=== PATIENT | female | born 1950 | race Caucasian/White ===

== ENCOUNTER 2016-02-27 05:29 | Day surgery (SDC) | payer MEDICARE, OTHER ==
[2016-02-22 12:28] LABS: APPEARANCE,URINE CLEAR; BILIRUBIN,URINE NEGATIVE (NEGATIVE); GLUCOSE, URINE NEGATIVE (NEGATIVE); KETONES,URINE NEGATIVE (NEGATIVE); LEUKOCYTE ESTERASE,URINE NEGATIVE (NEGATIVE); NITRITE,URINE NEGATIVE (NEGATIVE); PROTEIN,URINE NEGATIVE (NEGATIVE); UROBILINOGEN,URINE NEGATIVE mg/dL (<2.0)
--- NOTE | 2016-02-22 20:56 | EKG REPORT ---
SEVERITY:- ABNORMAL ECG - ATRIAL FIBRILLATION, V-RATE 73-96 : Confirmed by: Steven Montelongo MD 22-Feb-2016 20:55:54
[~2016-02-27 05:29] MED LIST: CEFAZOLIN SODIUM 1 GM in DEXTROSE 5%-WATER 50 ML IV PRN; LACTATED RINGERS 1000 ML IV PRN; LIDOCAINE 0.5% INJ-PF (5 MG/ML) 50 ML SDV SUBCUT PRN
[2016-02-27 06:23] LABS: PROTHROMBIN TIME 13.7 SEC (11.4-15.4)
[2016-02-27 06:24] LABS: PARTIAL THROMBOPLASTIN TIME 29.6 SEC (23.5-35.8)
[2016-02-27] MEDS ORDERED: FENTANYL CITRATE INJ/PF 250 MCG/5 ML AMPULE ONE (07:23)
[2016-02-27] MEDS ORDERED: MIDAZOLAM 2 MG/2 ML INJ ONE (07:23)
[2016-02-27] MEDS ORDERED: PROPOFOL INJ 200 MG/20 ML VIAL IV ONE (07:24)
[2016-02-27] MEDS ORDERED: OXYCODONE-ACETAMINOPHEN 5-325 MG TABLET PO PRN ×3 (08:07→08:27)
[2016-02-27] MEDS ORDERED: MORPHINE SULFATE 10 MG/ML INJ IV PRN (08:07)
[2016-02-27] MEDS ORDERED: MEPERIDINE HCL/PF INJ 25 MG/1 ML DISP.SYRIN IV PRN (08:07)
[2016-02-27] MEDS ORDERED: FENTANYL CITRATE INJ/PF 100 MCG/2 ML AMPUL IV PRN ×3 (08:07)
[2016-02-27] MEDS ORDERED: PROMETHAZINE HCL INJ 25 MG/1 ML VIAL IV PRN ×2 (08:07)
[2016-02-27] MEDS ORDERED: DIPHENHYDRAMINE HCL 50 MG/ML VIAL IV PRN (08:07)
[2016-02-27] MEDS ORDERED: PROMETHAZINE HCL INJ 25 MG/1 ML VIAL IM PRN (08:27)
[2016-02-27] MEDS ORDERED: IBUPROFEN 800 MG TABLET PO SCH (10:00)
[2016-02-27 11:13] VITALS: BP 122/75
[2016-02-27] MEDS ORDERED: LIDOCAINE 2% INJ-PF (20 MG/ML) 10 ML AMPUL ONE (12:27)
[2016-02-27] MEDS ORDERED: DEXAMETHASONE SOD PHOSPHATE INJ 4 MG/1 ML VIAL ONE (12:27)
[2016-02-27] MEDS ORDERED: ONDANSETRON HCL INJ/PF 4 MG/2 ML SDV ONE (12:27)
[2016-02-27] MEDS ORDERED: SUCCINYLCHOLINE CHLORIDE INJ 200 MG/10 ML VIAL ONE (12:27)
[2016-02-27] MEDS ORDERED: METOCLOPRAMIDE HCL INJ/PF 10 MG/2 ML SDV ONE (12:27)
--- NOTE | 2016-02-27 14:39 | OPERATIVE REPORT E ---
Operative Report NAME: CORI ARECHIGA : 1950 AGE: 65Y DATE OF SURGERY: 02/27/2016 ROOM: PREOPERATIVE DIAGNOSIS: Postmenopausal bleeding. POSTOPERATIVE DIAGNOSIS: Postmenopausal bleeding. PROCEDURE: Hysteroscopic polypectomy, . SURGEON: VALERIE RENTERIA M.D. ANESTHESIA: General endotracheal. FINDINGS: A 1 x 2 cm polypoid structure in the uterus. Post removal . No adnexal masses were appreciated. Bladder was left undrained. PROCEDURE: Patient taken to the operating room and placed in modified lithotomy position. Adequate anesthesia was ascertained. Prepped and draped in the usual manner for a hysteroscopy. Bladder was left undrained. UA performed. Adequate anesthesia was done. Surgical timeout performed. Cervix readily admitted an operative hysteroscope. findings were appreciated. MyoSure was deployed. The lesion was removed in toto and sent to pathology. Good hemostasis noted at the completion of the procedure and all sponge and needle counts were correct . DICTATING PHYSICIAN: VALERIE RENTERIA M.D. [id number] PHY#: [id number] ID: [id number] JOB#: [id number] ACCT: [id number] cc:VALERIE RENTERIA M.D. >
== END 2016-02-27 10:40 | disposition home or self-care (01) ==
LOC: OROUT 05:29
PROVIDERS: ATTEND Specialist
PROC: 0UB98ZX Excision of Uterus, Via Natural or Artificial Opening Endoscopic, Diagnostic (ICD-10-PCS; principal; 2016-02-27 07:15)
DX: N95.0 Postmenopausal bleeding (principal); N84.0 Polyp of corpus uteri; I48.91 Unspecified atrial fibrillation; E07.9 Disorder of thyroid, unspecified; I10 Essential (primary) hypertension; Z79.01 Long term (current) use of anticoagulants; Z79.899 Other long term (current) drug therapy; Z88.2 Allergy status to sulfonamides; Z86.73 Personal history of transient ischemic attack (TIA), and cerebral infarction without residual deficits
CPT/HCPCS: 93005; 86900; 86901; 36415 ×2; 86850; 85610; 85730; 81001; 88305 ×2; 71020; 93010; 58558; J2250; J0690; J1100; J3010; J2765; J0330; J2405; J2704; J3490; 952

== ENCOUNTER → 2016-07-29 | Outpatient (CLI) | payer MEDICARE, OTHER ==
[2016-07-29 08:19] LABS: ABSOLUTE BASOPHILS # (AUTO) 0.1 10^3/uL (0.0-0.2); ABSOLUTE EOSINOPHILS # (AUTO) 0.3 10^3/uL (0.0-0.6); ABSOLUTE LYMPHOCYTES (AUTO) 1.7 10^3/uL (0.5-4.7); ABSOLUTE MONOCYTES (AUTO) 0.7 10^3/uL (0.1-1.4); ABSOLUTE NEUT (AUTO) 2.5 10^3/uL (1.7-8.2); BASOPHILS % (AUTO) 1.6 % (0-2); EOSINOPHILS % (AUTO) 4.8 % (0-6); HEMATOCRIT 42.9 % (36.0-47.0); HEMOGLOBIN 14.1 g/dL (12.0-15.5); HGB HCT DIFFERENCE -0.6; LYMPHOCYTES % (AUTO) 32.8 % (13-45); MEAN CORPUSCULAR HEMOGLOBIN 31.1 pg (27.0-33.4); MEAN CORPUSCULAR VOLUME 94 fl (80-97); MONOCYTES % (AUTO) 12.5 % (3-13); RED BLOOD COUNT 4.55 10^6/uL (3.72-5.28); RED CELL DISTRIBUTION WIDTH 12.3 % (11.5-14.0); SEGMENTED NEUTROPHILS % (AUTO) 48.3 % (42-78); WHITE BLOOD COUNT 5.2 10^3/uL (4.0-10.5)
[2016-07-29 08:38] LABS: ALANINE AMINOTRANSFERASE 25 U/L (9-52); ALBUMIN 4.6 g/dL (3.5-5.0); ALKALINE PHOSPHATASE 51 U/L (38-126); ANION GAP 9 (5-19); ASPARTATE AMINO TRANSFERASE 22 U/L (14-36); BILIRUBIN,DIRECT 0.2 mg/dL (0.0-0.4); BILIRUBIN,TOTAL 0.6 mg/dL (0.2-1.3); BLOOD UREA NITROGEN 20 mg/dL (7-20); CARBON DIOXIDE 29 mmol/L (22-30); CHLORIDE 103 mmol/L (98-107); CHOLESTEROL 210.24 mg/dL (0-200); Direct HDL 62 mg/dL (>40); GLUCOSE 85 mg/dL (75-110); POTASSIUM 4.6 mmol/L (3.6-5.0); SODIUM 141.1 mmol/L (137-145); TOTAL PROTEIN 8.1 g/dL (6.3-8.2); TRIGLYCERIDES 105 mg/dL (<150)
[2016-07-29 08:55] LABS: DIRECT LDL 117 mg/dL (<100)
[2016-07-29 09:17] LABS: THYROID STIMULATING HORMONE 1.97 uIU/mL (0.47-4.68)
== END ==
LOC: OD 07:10
PROVIDERS: ATTEND Internal Medicine
DX: I10 Essential (primary) hypertension (principal); E78.2 Mixed hyperlipidemia; E03.9 Hypothyroidism, unspecified; Z79.01 Long term (current) use of anticoagulants
CPT/HCPCS: 36415; 80053; 80061; 84439; 84443; 85025

== ENCOUNTER → 2017-02-25 | Outpatient (CLI) | payer MEDICARE, OTHER ==
[2017-02-25 12:08] LABS: ABSOLUTE BASOPHILS # (AUTO) 0.1 10^3/uL (0.0-0.2); ABSOLUTE EOSINOPHILS # (AUTO) 0.2 10^3/uL (0.0-0.6); ABSOLUTE LYMPHOCYTES (AUTO) 1.4 10^3/uL (0.5-4.7); ABSOLUTE MONOCYTES (AUTO) 0.6 10^3/uL (0.1-1.4); ABSOLUTE NEUT (AUTO) 3.5 10^3/uL (1.7-8.2); BASOPHILS % (AUTO) 2.2 % (0-2); EOSINOPHILS % (AUTO) 3.6 % (0-6); HEMATOCRIT 43.7 % (36.0-47.0); HEMOGLOBIN 14.8 g/dL (12.0-15.5); LYMPHOCYTES % (AUTO) 24.1 % (13-45); MEAN CORPUSCULAR HEMOGLOBIN 31.5 pg (27.0-33.4); MEAN CORPUSCULAR HGB CONC 33.9 g/dL (32.0-36.0); MEAN CORPUSCULAR VOLUME 93 fl (80-97); MONOCYTES % (AUTO) 9.9 % (3-13); PLATELET COUNT 202 10^3/uL (150-450); RED CELL DISTRIBUTION WIDTH 12.3 % (11.5-14.0); SEGMENTED NEUTROPHILS % (AUTO) 60.2 % (42-78); TOTAL CELLS COUNTED % (AUTO) 100 %; WHITE BLOOD COUNT 5.8 10^3/uL (4.0-10.5)
[2017-02-25 12:09] LABS: INTERNATIONAL RATION (INR) 1.56; PROTHROMBIN TIME 19.6 SEC (11.4-15.4)
[2017-02-25 12:27] LABS: ALANINE AMINOTRANSFERASE 27 U/L (9-52); ALBUMIN 4.9 g/dL (3.5-5.0); ALKALINE PHOSPHATASE 60 U/L (38-126); ANION GAP 12 (5-19); ASPARTATE AMINO TRANSFERASE 23 U/L (14-36); BILIRUBIN,DIRECT 0.2 mg/dL (0.0-0.4); BILIRUBIN,TOTAL 0.6 mg/dL (0.2-1.3); BLOOD UREA NITROGEN 17 mg/dL (7-20); CALCIUM 10.4 mg/dL (8.4-10.2); CARBON DIOXIDE 30 mmol/L (22-30); CHLORIDE 101 mmol/L (98-107); CHOLESTEROL 228.32 mg/dL (0-200); GLUCOSE 79 mg/dL (75-110); POTASSIUM 4.5 mmol/L (3.6-5.0); SODIUM 142.5 mmol/L (137-145); TOTAL PROTEIN 8.1 g/dL (6.3-8.2); TRIGLYCERIDES 148 mg/dL (<150)
[2017-02-25 12:38] LABS: DIRECT LDL 135 mg/dL (<100)
[2017-02-25 12:42] LABS: FREE T4 (FREE THYROXINE) 1.2 ng/dL (0.78-2.19)
[2017-02-25 12:55] LABS: THYROID STIMULATING HORMONE 1.62 uIU/mL (0.47-4.68)
== END ==
LOC: OD 10:28
PROVIDERS: ATTEND Internal Medicine
DX: I10 Essential (primary) hypertension (principal); E78.2 Mixed hyperlipidemia; E03.9 Hypothyroidism, unspecified; Z79.01 Long term (current) use of anticoagulants
CPT/HCPCS: 36415; 80053; 80061; 84439; 84443; 85025; 85610

== ENCOUNTER → 2017-08-31 | Outpatient (CLI) | payer MEDICARE, OTHER ==
[2017-08-31 10:22] LABS: ANION GAP 13 (5-19); BLOOD UREA NITROGEN 21 mg/dL (7-20); CALCIUM 9.7 mg/dL (8.4-10.2); CARBON DIOXIDE 30 mmol/L (22-30); CHLORIDE 102 mmol/L (98-107); CHOLESTEROL 224.21 mg/dL (0-200); GLUCOSE 86 mg/dL (75-110); POTASSIUM 4.4 mmol/L (3.6-5.0); SODIUM 144.7 mmol/L (137-145); TRIGLYCERIDES 137 mg/dL (<150)
[2017-08-31 10:32] LABS: DIRECT LDL 126 mg/dL (<100)
== END ==
LOC: OD 09:13
PROVIDERS: ATTEND Internal Medicine
DX: E55.9 Vitamin D deficiency, unspecified (principal); E83.52 Hypercalcemia; E78.2 Mixed hyperlipidemia
CPT/HCPCS: 36415; 80048; 80061; 82306

== ENCOUNTER → 2018-01-28 | Outpatient (CLI) | payer MEDICARE, OTHER ==
[2018-01-28 10:39] LABS: ABSOLUTE BASOPHILS # (AUTO) 0.1 10^3/uL (0.0-0.2); ABSOLUTE EOSINOPHILS # (AUTO) 0.2 10^3/uL (0.0-0.6); ABSOLUTE LYMPHOCYTES (AUTO) 1.4 10^3/uL (0.5-4.7); ABSOLUTE MONOCYTES (AUTO) 0.4 10^3/uL (0.1-1.4); ABSOLUTE NEUT (AUTO) 2.7 10^3/uL (1.7-8.2); BASOPHILS % (AUTO) 2.3 % (0-2); EOSINOPHILS % (AUTO) 3.4 % (0-6); HEMATOCRIT 41.8 % (36.0-47.0); HEMOGLOBIN 14.7 g/dL (12.0-15.5); LYMPHOCYTES % (AUTO) 28.9 % (13-45); MEAN CORPUSCULAR HEMOGLOBIN 32.7 pg (27.0-33.4); MEAN CORPUSCULAR HGB CONC 35.3 g/dL (32.0-36.0); MEAN CORPUSCULAR VOLUME 93 fl (80-97); MONOCYTES % (AUTO) 8.6 % (3-13); PLATELET COUNT 205 10^3/uL (150-450); RED BLOOD COUNT 4.51 10^6/uL (3.72-5.28); RED CELL DISTRIBUTION WIDTH 12.4 % (11.5-14.0); SEGMENTED NEUTROPHILS % (AUTO) 56.8 % (42-78); TOTAL CELLS COUNTED % (AUTO) 100 %; WHITE BLOOD COUNT 4.7 10^3/uL (4.0-10.5)
[2018-01-28 10:52] LABS: ANION GAP 12 (5-19); BLOOD UREA NITROGEN 17 mg/dL (7-20); CALCIUM 9.8 mg/dL (8.4-10.2); CARBON DIOXIDE 29 mmol/L (22-30); CHLORIDE 102 mmol/L (98-107); CHOLESTEROL 222.86 mg/dL (0-200); GLUCOSE 90 mg/dL (75-110); POTASSIUM 4.6 mmol/L (3.6-5.0); SODIUM 142.5 mmol/L (137-145); TRIGLYCERIDES 124 mg/dL (<150)
[2018-01-28 11:04] LABS: DIRECT LDL 146 mg/dL (<100)
== END ==
LOC: OD 09:40
PROVIDERS: ATTEND Internal Medicine
DX: E78.2 Mixed hyperlipidemia (principal); I10 Essential (primary) hypertension
CPT/HCPCS: 36415; 80048; 80061; 85025

== ENCOUNTER → 2018-09-30 | Outpatient (CLI) | payer MEDICARE ==
[2018-09-30 09:34] LABS: APPEARANCE,URINE CLEAR; BILIRUBIN,URINE NEGATIVE (NEGATIVE); COLOR,URINE YELLOW; GLUCOSE, URINE NEGATIVE (NEGATIVE); KETONES,URINE NEGATIVE (NEGATIVE); LEUKOCYTE ESTERASE,URINE SMALL (NEGATIVE); NITRITE,URINE NEGATIVE (NEGATIVE); PROTEIN,URINE NEGATIVE (NEGATIVE); URINE SPECIFIC GRAVITY 1.016; UROBILINOGEN,URINE NEGATIVE mg/dL (<2.0)
[2018-09-30 09:35] LABS: ADD MANUAL MICROSCOPIC YES
[2018-09-30 09:39] LABS: ABSOLUTE BASOPHILS # (AUTO) 0.1 10^3/uL (0.0-0.2); ABSOLUTE EOSINOPHILS # (AUTO) 0.2 10^3/uL (0.0-0.6); ABSOLUTE LYMPHOCYTES (AUTO) 1.5 10^3/uL (0.5-4.7); ABSOLUTE MONOCYTES (AUTO) 0.5 10^3/uL (0.1-1.4); ABSOLUTE NEUT (AUTO) 2.8 10^3/uL (1.7-8.2); EOSINOPHILS % (AUTO) 3.9 % (0-6); HEMATOCRIT 42.7 % (36.0-47.0); HEMOGLOBIN 14.6 g/dL (12.0-15.5); LYMPHOCYTES % (AUTO) 28.4 % (13-45); MEAN CORPUSCULAR HEMOGLOBIN 31.7 pg (27.0-33.4); MEAN CORPUSCULAR HGB CONC 34.3 g/dL (32.0-36.0); MEAN CORPUSCULAR VOLUME 93 fl (80-97); MONOCYTES % (AUTO) 10.1 % (3-13); PLATELET COUNT 183 10^3/uL (150-450); RED BLOOD COUNT 4.61 10^6/uL (3.72-5.28); RED CELL DISTRIBUTION WIDTH 12.6 % (11.5-14.0); SEGMENTED NEUTROPHILS % (AUTO) 55.6 % (42-78); TOTAL CELLS COUNTED % (AUTO) 100 %; WHITE BLOOD COUNT 5.1 10^3/uL (4.0-10.5)
[2018-09-30 09:46] LABS: RBC,URINE 0-1 /HPF
[2018-09-30 09:47] LABS: BACTERIA,URINE 1+ /HPF
[2018-09-30 09:49] LABS: ALBUMIN 4.8 g/dL (3.5-5.0); ALKALINE PHOSPHATASE 52 U/L (38-126); ANION GAP 12 (5-19); ASPARTATE AMINO TRANSFERASE 22 U/L (14-36); BILIRUBIN,DIRECT 0.2 mg/dL (0.0-0.4); BILIRUBIN,TOTAL 0.5 mg/dL (0.2-1.3); BLOOD UREA NITROGEN 19 mg/dL (7-20); CALCIUM 9.8 mg/dL (8.4-10.2); CARBON DIOXIDE 27 mmol/L (22-30); CHLORIDE 100 mmol/L (98-107); CHOLESTEROL 230.59 mg/dL (0-200); GLUCOSE 93 mg/dL (75-110); POTASSIUM 4.7 mmol/L (3.6-5.0); TOTAL PROTEIN 7.8 g/dL (6.3-8.2); TRIGLYCERIDES 142 mg/dL (<150)
[2018-09-30 10:00] LABS: DIRECT LDL 150 mg/dL (<100)
[2018-09-30 10:33] LABS: THYROID STIMULATING HORMONE 2.02 uIU/mL (0.47-4.68)
== END ==
LOC: OD 08:32
PROVIDERS: ATTEND Physician Assistant
DX: E03.9 Hypothyroidism, unspecified (principal); E55.9 Vitamin D deficiency, unspecified; E78.2 Mixed hyperlipidemia; I10 Essential (primary) hypertension; R35.0 Frequency of micturition; Z79.899 Other long term (current) drug therapy
CPT/HCPCS: 36415; 80053; 80061; 81001; 82306; 84439; 84443; 85025

== ENCOUNTER → 2019-11-29 | Outpatient (CLI) | payer MEDICARE ==
[2019-11-29 09:03] LABS: ABSOLUTE BASOPHILS # (AUTO) 0.1 10^3/uL (0.0-0.2); ABSOLUTE EOSINOPHILS # (AUTO) 0.2 10^3/uL (0.0-0.6); ABSOLUTE LYMPHOCYTES (AUTO) 1.6 10^3/uL (0.5-4.7); ABSOLUTE MONOCYTES (AUTO) 0.6 10^3/uL (0.1-1.4); ABSOLUTE NEUT (AUTO) 2.9 10^3/uL (1.7-8.2); BASOPHILS % (AUTO) 1.8 % (0-2); EOSINOPHILS % (AUTO) 3.8 % (0-6); HEMATOCRIT 43.7 % (36.0-47.0); HEMOGLOBIN 15.4 g/dL (12.0-15.5); LYMPHOCYTES % (AUTO) 29.5 % (13-45); MEAN CORPUSCULAR HEMOGLOBIN 32.5 pg (27.0-33.4); MEAN CORPUSCULAR HGB CONC 35.2 g/dL (32.0-36.0); MEAN CORPUSCULAR VOLUME 92 fl (80-97); MONOCYTES % (AUTO) 10.9 % (3-13); PLATELET COUNT 206 10^3/uL (150-450); RED BLOOD COUNT 4.73 10^6/uL (3.72-5.28); RED CELL DISTRIBUTION WIDTH 12.3 % (11.5-14.0); TOTAL CELLS COUNTED % (AUTO) 100 %; WHITE BLOOD COUNT 5.4 10^3/uL (4.0-10.5)
[2019-11-29 09:20] LABS: ALBUMIN 4.9 g/dL (3.5-5.0); ALKALINE PHOSPHATASE 64 U/L (38-126); ANION GAP 10 (5-19); ASPARTATE AMINO TRANSFERASE 26 U/L (14-36); BILIRUBIN,DIRECT 0.2 mg/dL (0.0-0.4); BILIRUBIN,TOTAL 0.8 mg/dL (0.2-1.3); BLOOD UREA NITROGEN 17 mg/dL (7-20); CALCIUM 9.9 mg/dL (8.4-10.2); CARBON DIOXIDE 28 mmol/L (22-30); CHLORIDE 101 mmol/L (98-107); CHOLESTEROL 268.51 mg/dL (0-200); GLUCOSE 101 mg/dL (75-110); POTASSIUM 4.1 mmol/L (3.6-5.0); TOTAL PROTEIN 8.4 g/dL (6.3-8.2); TRIGLYCERIDES 215 mg/dL (<150)
[2019-11-29 09:31] LABS: DIRECT LDL 172 mg/dL (<100)
[2019-11-29 09:33] LABS: FREE T4 (FREE THYROXINE) 1.03 ng/dL (0.78-2.19)
[2019-11-29 09:47] LABS: THYROID STIMULATING HORMONE 2.48 uIU/mL (0.47-4.68)
== END ==
LOC: OD 08:20
PROVIDERS: ATTEND Physician Assistant
DX: E78.2 Mixed hyperlipidemia (principal); E03.9 Hypothyroidism, unspecified; E55.9 Vitamin D deficiency, unspecified; Z12.11 Encounter for screening for malignant neoplasm of colon
CPT/HCPCS: 36415; 80053; 80061; 82306; 84439; 84443; 85025

== ENCOUNTER 2020-01-05 07:20 | Inpatient (IN) | payer MEDICARE ==
[2020-01-05 09:04] LABS: ABSOLUTE BASOPHILS # (AUTO) 0.1 10^3/uL (0.0-0.2); ABSOLUTE EOSINOPHILS # (AUTO) 0.2 10^3/uL (0.0-0.6); ABSOLUTE LYMPHOCYTES (AUTO) 2.1 10^3/uL (0.5-4.7); ABSOLUTE MONOCYTES (AUTO) 0.5 10^3/uL (0.1-1.4); ABSOLUTE NEUT (AUTO) 4.5 10^3/uL (1.7-8.2); BASOPHILS % (AUTO) 1.2 % (0-2); EOSINOPHILS % (AUTO) 2.5 % (0-6); HEMATOCRIT 42.4 % (36.0-47.0); HEMOGLOBIN 14.3 g/dL (12.0-15.5); LYMPHOCYTES % (AUTO) 28.2 % (13-45); MEAN CORPUSCULAR HEMOGLOBIN 31.8 pg (27.0-33.4); MEAN CORPUSCULAR HGB CONC 33.8 g/dL (32.0-36.0); MEAN CORPUSCULAR VOLUME 94 fl (80-97); MONOCYTES % (AUTO) 7.4 % (3-13); PLATELET COUNT 214 10^3/uL (150-450); RED CELL DISTRIBUTION WIDTH 12.6 % (11.5-14.0); SEGMENTED NEUTROPHILS % (AUTO) 60.7 % (42-78); TOTAL CELLS COUNTED % (AUTO) 100 %; WHITE BLOOD COUNT 7.4 10^3/uL (4.0-10.5)
[2020-01-05 09:08] LABS: ALBUMIN 4.8 g/dL (3.5-5.0); ALKALINE PHOSPHATASE 68 U/L (38-126); ANION GAP 15 (5-19); ASPARTATE AMINO TRANSFERASE 30 U/L (14-36); BILIRUBIN,DIRECT 0.1 mg/dL (0.0-0.4); BILIRUBIN,TOTAL 0.6 mg/dL (0.2-1.3); BLOOD UREA NITROGEN 17 mg/dL (7-20); CALCIUM 9.9 mg/dL (8.4-10.2); CARBON DIOXIDE 23 mmol/L (22-30); CHLORIDE 104 mmol/L (98-107); CREATINE KINASE 43 U/L (30-135); GLUCOSE 177 mg/dL (75-110); POTASSIUM 3.4 mmol/L (3.6-5.0); TOTAL PROTEIN 8.2 g/dL (6.3-8.2)
[2020-01-05 09:19] LABS: CREATINE KINASE MB 0.42 ng/mL (<4.55)
[2020-01-05] MEDS ORDERED: ONDANSETRON HCL INJ/PF 4 MG/2 ML SDV IV ONE (09:25)
[2020-01-05 09:26] LABS: TROPONIN I < 0.012 ng/mL
[2020-01-05] MEDS ORDERED: METOCLOPRAMIDE HCL INJ/PF 10 MG/2 ML SDV IV ONE (11:32)
[2020-01-05] MEDS ORDERED: RINGERS SOLUTION,LACTATED 1,000 ML IV ONE (11:32)
[2020-01-05 11:34] LABS: INTERNATIONAL RATION (INR) 1.71; PROTHROMBIN TIME 20.2 SEC (11.4-15.4)
--- NOTE | 2020-01-05 12:46 | ER Document Report ---
Entered by LANDON DELEON SCRIBE 01/05/20 1120 Acting as scribe for:TAWANDA DUTTA MD ED General - General Chief Complaint: Irregular Pulse Stated Complaint: DIZZINESS/NAUSEA Time Seen by Provider: 01/05/20 11:17 Primary Care Provider: HANNA KING MD [Primary Care Provider] - Follow up as needed Mode of Arrival: Medic Information source: Patient, Emergency Med Personnel Notes: This 69 year old female patient with a history of hypertension, hyperlipidemia, A fib on Coumadin, and CVA in 2009 presents to the ED today via EMS with complaints of dizziness that started around 0600 this morning. Patient states that she felt fine walking to the bathroom this morning, but when she walked into the living room, the dizziness "just hit me." She notes associated nausea and vomiting. Per nursing, EMS reports that that patient was noted to be o bviously dizzy while ambulating to the door and that the EKG showed that the patient was in A fib with heart rate in the 120s-130s. Patient reportedly took her own Diltiazem prior to arrival after refusing IV administration. Daughter at bedside who does not live with the patient mentions that she was told by the patient's friends that she has been increasingly tired lately and has been sleeping a lot for the past couple of months. Patient reports her INR was 3.7 on 12/30/2019. She stopped her Coumadin for 2 days, and then started back on 5 mg a day. Previously she had been on 6 mg Thursday and 4 mg Thursday. TRAVEL OUTSIDE OF THE [place] IN LAST 30 DAYS: No - Related Data Allergies/Adverse Reactions: latex [Latex] Allergy (Intermediate, Verified 01/05/20 07:44) hands break out Sulfa (Sulfonamide Antibiotics) Adverse Reaction (Unknown, Verified 01/05/20 07:44) Generalized rash cephalexin [From Keflex] Adverse Reaction (Verified 01/05/20 07:44) Past Medical History - General Information source: Patient, Relative, [facility] Records - Social History Smoking Status: Never Smoker Cigarette use (# per day): No Chew tobacco use (# tins/day): No Smoking Education Provided: No Frequency of alcohol use: None Drug Abuse: None Family History: Reviewed & Not Pertinent Patient has suicidal ideation: No Patient has homicidal ideation: No - Past Medical History Cardiac Medical History: Reports: Hx Atrial Fibrillation, Hx Coronary Artery Disease - CHOLESTEROL, Hx Hypercholesterolemia, Hx Hypertension - HX Neurological Medical History: Reports: Hx Cerebrovascular Accident - 2010 Past Surgical History: Reports: Hx Cholecystectomy - Immunizations Hx Diphtheria, Pertussis, Tetanus Vaccination: No Review of Systems - Review of Systems Constitutional: No symptoms reported EENT: No symptoms reported Cardiovascular: See HPI, Dizziness Respiratory: No symptoms reported Gastrointestinal: See HPI, Nausea, Vomiting Genitourinary: No symptoms reported Female Genitourinary: No symptoms reported Musculoskeletal: No symptoms reported Skin: No symptoms reported Hematologic/Lymphatic: No symptoms reported Neurological/Psychological: No symptoms reported -: Yes All other systems reviewed and negative Physical Exam - Vital signs Vitals: Pulse Resp BP Pulse Ox 98 16 128/68 H 95 01/05/20 07:20 01/05/20 07:20 01/05/20 07:20 01/05/20 07:20 - General In distress: None - HEENT Head: Normocephalic, Atraumatic Eyes: Other - Minimal right lateral gaze nystagmus Pupils: PERRL Neck: Normal, Supple. No: Carotid bruit Notes: When I have the patient sit up and look back and forth, up and down, it does not seem to provoke any dizziness - Respiratory Respiratory status: No respiratory distress Chest status: Nontender Breath sounds: Normal Chest palpation: Normal - Cardiovascular Rhythm: Irregularly irregular Heart sounds: Normal auscultation Murmur: No Friction rub: No Gallop: None auscultated - Abdominal Inspection: Normal Distension: No distension Bowel sounds: Normal Tenderness: Nontender - Abdomen soft Organomegaly: No organomegaly - Back Back: Normal, Nontender - Extremities General upper extremity: Normal inspection General lower extremity: Normal inspection. No: Edema - Neurological Neuro grossly intact: Yes - No focal motor deficits - Psychological Associated symptoms: Normal affect, Normal mood - Skin Skin Temperature: Warm Skin Moisture: Dry Skin Color: Normal Course - Re-evaluation Re-evalutation: 01/05/20 13:48 Patient's INR is 1.71 today, her doctor wants her between 2 and 3. She is in chronic atrial fibrillation. She has had a stroke in the past, and that is when she was discovered to have A. fib. We will get an MRI today to exclude stroke as a cause of her symptoms. She does report the nauseousness is better after the Reglan, but she still feels a little bit nauseous. The patient was seen a little over 5 hours after onset of symptoms. She does not have any definite focal motor deficits. She is on Coumadin with an INR of 1.71 and for these reasons is not a TPA candidate. - Vital Signs Vital signs: Temp Pulse Resp BP Pulse Ox 98.2 F 98 14 137/84 H 97 01/05/20 08:46 01/05/20 07:44 01/05/20 14:00 01/05/20 12:00 01/05/20 14:00 - Laboratory Result Diagrams: 01/05/20 07:40 01/05/20 07:40 Laboratory results interpreted by me: 01/05/20 01/05/20 01/05/20 07:40 07:40 13:16 PT 20.2 H Potassium 3.4 L Glucose 177 H Urine Protein 30 H Urine Ketones TRACE H Urine Blood SMALL H Ur Leukocyte Esterase SMALL H - Diagnostic Test Radiology reviewed: Image reviewed, Reports reviewed - MRI of the brain shows an acute, nonhemorrhagic infarct of the left cerebellum - EKG Interpretation by Me EKG shows normal: [place], Intervals, QRS Complexes. abnormal: ST-T Waves - Diffuse nonspecific repolarization abnormalities. Rate: Normal - 96 Rhythm: A.Fib When compared to previous EKG there are: Changes noted - The ST depression and biphasic T waves are new compared to 02/22/2016. - Consults Dr. 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
[2020-01-05 14:14] LABS: APPEARANCE,URINE SLIGHTLY-CLOUDY; BILIRUBIN,URINE NEGATIVE (NEGATIVE); COLOR,URINE YELLOW; GLUCOSE, URINE NEGATIVE (NEGATIVE); KETONES,URINE TRACE mg/dL (NEGATIVE); LEUKOCYTE ESTERASE,URINE SMALL (NEGATIVE); NITRITE,URINE NEGATIVE (NEGATIVE); PROTEIN,URINE 30 mg/dL (NEGATIVE); URINE SPECIFIC GRAVITY 1.015; UROBILINOGEN,URINE NEGATIVE mg/dL (<2.0)
--- NOTE | 2020-01-05 16:06 | RADIOLOGY REPORT (SQ) ---
EXAM DESCRIPTION: MRI HEAD WITHOUT IMAGES COMPLETED DATE/TIME: 01/05/2020 3:58 pm REASON FOR STUDY: Dizzy, vomiting, A. fib, low INR COMPARISON: None. TECHNIQUE: Multiplanar imaging includes non-contrasted T1, T2, FLAIR, and diffusion with ADC map seq uences. Images stored on PACS. LIMITATIONS: None. FINDINGS: ANATOMY: No anomalies. Normal vascular flow voids. Pituitary fossa normal. CSF SPACES: Normal in size and contour. No hemorrhage. CEREBRUM: Old watershed infarct left frontal lobe. No evidence of acute infarct, hemorrhage or extra -axial fluid collection. POSTERIOR FOSSA: 2.5 cm oval area of abnormal signal left cerebellum bright on diffusion and dark on ADC map. No hemorrhage or mass effect. DIFFUSION IMAGING: See above. ORBITS: No masses. Globes normal. PARANASAL SINUSES: No fluid levels. Mucosa normal. OTHER: No other significant finding. IMPRESSION: Acute, nonhemorrhagic infarct left cerebellum. EVIDENCE OF ACUTE STROKE: YES. LEFT VERTEBROBASILAR TECHNICAL DOCUMENTATION: JOB ID: [id number] 2010 [employer] All Rights Reserved Reading location - IP/workstation name: [email or web address]
[2020-01-05] MEDS ORDERED: ACETAMINOPHEN 325 MG TABLET PO PRN (18:13)
--- NOTE | 2020-01-05 18:23 | PDOC H&P ---
History of Present Illness Admission Date/PCP: 01/05/20 17:51 HANNA KING MD History of Present Illness: CORI ARECHIGA is a 69 year old female with a history of atrial fibrillation who is only 2 medications are diltiazem and Coumadin. She presented after having an episode this morning around 6:00. She said she was going to answer the door and she got very dizzy felt like she was not going to be able to make it to the door. She said she made it back to her couch and vomited. She called her friend and then she called EMS. She was still a little dizzy by the time I saw her. She did not have any strength deficits. She is not had any trouble chewing or swallowing and in fact says she is hungry and would like to have something to eat. She was not having any visual disturbances. No trouble using her hands. No trouble with her speech. She was taken off of her Coumadin for 2 days, Thursday and Thursday, and started back on Thursday. She was taking 6 mg twice a week and then 4 mg the rest of the week. Her INR was 3.7 and so her doctor had her hold her Coumadin for 2 days and then restart at 5 mg a day. She has been on that for 4 days now. Her INR after stopping Coumadin for 2 days and then being back on it at 5 mg for 4 days was 1.7. When EMS showed up her heart rate was in the 120s and 130s. Her heart rate is back in the normal range now and her other vital signs are stable. She was nauseated and threw up once in the ER. She had an MRI of the brain that showed a left cerebellar stroke. Apparently she had 1 in 2009 and that was how she found out she had atrial fibrillation. Past Medical History Cardiac Medical History: Reports: Atrial Fibrillation, Coronary Artery Disease - CHOLESTEROL, Hyperlipidema, Hypertension - HX Denies: Myocardial Infarction Pulmonary Medical History: Denies: Asthma, Bronchitis, Chronic Obstructive Pulmonary Disease (COPD), Pneumonia Neurological Medical History: Denies: Seizures GI Medical History: Denies: Hepatitis, Hiatal Hernia Musculoskeltal Medical History: Denies: Arthritis Hematology: Denies: Anemia, Sickle Cell Disease Past Surgical History Past Surgical History: Reports: Cholecystectomy Denies: Amputation, Mastectomy, Pacemaker Social History Smoking Status: Never Smoker Family History Family History: Reviewed & Not Pertinent Parental Family History Reviewed: Yes Children Family History Reviewed: Yes Sibling(s) Family History Reviewed.: Yes Medication/Allergy Home Medications: Diltiazem HCl [Diltiazem ER] 120 mg PO BID 10/27/13 Warfarin Sodium [Coumadin 1 mg Tablet] 6 mg PO ASDIR PRN 01/25/14 Warfarin Sodium [Coumadin 4 mg Tablet] 4 mg PO ASDIR PRN 01/25/14 Pravastatin Sodium [Pravachol] 20 mg PO DAILY 07/19/14 Allergies/Adverse Reactions: latex [Latex] Allergy (Intermediate, Verified 01/05/20 07:44) hands break out Sulfa (Sulfonamide Antibiotics) Adverse Reaction (Unknown, Verified 01/05/20 07:44) Generalized rash cephalexin [From Keflex] Adverse Reaction (Verified 01/05/20 07:44) Review of Systems All systems: reviewed and no additional remarkable complaints except as stated - All systems were reviewed and were negative except as noted in HPI Physical Exam Vital Signs: Temp Pulse Resp BP Pulse Ox 98 F 95 18 136/81 H 97 01/05/20 17:45 01/05/20 17:45 01/05/20 17:45 01/05/20 17:45 01/05/20 17:45 Intake & Output 01/04/20 01/05/20 01/06/20 06:59 06:59 06:59 Intake Total 1000 Balance 1000 Weight 71.2 kg General appearance: PRESENT: no acute distress, cooperative, disheveled Head exam: PRESENT: atraumatic, normocephalic Eye exam: PRESENT: EOMI, PERRLA. ABSENT: conjunctival injection, nystagmus, scleral icterus Ear exam: PRESENT: normal external ear exam Mouth exam: PRESENT: moist, neck supple Throat exam: ABSENT: post pharyngeal erythema Neck exam: PRESENT: full ROM. ABSENT: carotid bruit, JVD, lymphadenopathy, meningismus, tenderness, thyromegaly Respiratory exam: PRESENT: clear to auscultation manuel, symmetrical, unlabored. ABSENT: accessory muscle use, chest wall tenderness, crackles, prolonged expiratory phas, rhonchi, tachypnea, wheezes Cardiovascular exam: PRESENT: irregular rhythm, +S1, +S2 Pulses: PRESENT: normal carotid pulses Vascular exam: PRESENT: normal capillary refill GI/Abdominal exam: PRESENT: normal bowel sounds, soft. ABSENT: distended, guarding, rebound, tenderness Extremities exam: ABSENT: clubbing, pedal edema Musculoskeletal exam: PRESENT: normal inspection. ABSENT: deformity Neurological exam: PRESENT: alert, awake, oriented to person, oriented to place, oriented to situation, CN II-XII grossly intact. ABSENT: motor sensory deficit Psychiatric exam: PRESENT: anxious Skin exam: PRESENT: dry, warm Results Laboratory Results: 01/05/20 07:40 01/05/20 07:40 01/05/20 01/05/20 01/05/20 07:40 07:40 13:16 WBC 7.4 RBC 4.50 Hgb 14.3 Hct 42.4 MCV 94 MCH 31.8 MCHC 33.8 RDW 12.6 Plt Count 214 Seg Neutrophils % 60.7 Sodium 141.9 Potassium 3.4 L Chloride 104 Carbon Dioxide 23 Anion Gap 15 BUN 17 Creatinine 0.72 Est GFR ( Amer) > 60 Glucose 177 H Calcium 9.9 Total Bilirubin 0.6 AST 30 Alkaline Phosphatase 68 Total Protein 8.2 Albumin 4.8 Urine Color YELLOW Urine Appearance SLIGHTLY-CLOUDY Urine pH 7.0 Ur Specific [place] 1.015 Urine Protein 30 H Urine Glucose (UA) NEGATIVE Urine Ketones TRACE H Urine Blood SMALL H Urine Nitrite NEGATIVE Ur Leukocyte Esterase SMALL H Urine WBC (Auto) 5 Urine RBC (Auto) 3 01/05/20 01/05/20 07:40 07:40 Creatine Kinase 43 CK-MB (CK-2) 0.42 Troponin I < 0.012 Impressions: Head MRI 01/05/20 13:44 IMPRESSION: Acute, nonhemorrhagic infarct left cerebellum. EVIDENCE OF ACUTE STROKE: YES. 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 The protocol at this facility because her pharmacy to dose the Coumadin. I will put her on therapeutic dose Lovenox until her INR is therapeutic. We will continue her diltiazem. We will have physical therapy see her in the morning. I was considering a YAYO but she may not need it because she is going to be anticoagulated anyway and she does not have any risk factors for severe bleeding. I will talk with the bottom finisher about this in the morning. - Time Time Spent with patient: 35 or more minutes Anticipated Discharge Disposition: Home, Self Care Anticipated Discharge Timeframe: within 72 hours - Inpatient Certification Based on my medical assessment, after consideration of the patient's comorbidities, presenting symptoms, or acuity I expect that the services needed warrant INPATIENT care.: Yes I certify that my determination is in accordance with my understanding of Medicare's requirements for reasonable and necessary INPATIENT services [42 CFR 412.3e].: Yes Medical Necessity: Significant Comorbidiites Make Outpatient Treatment Too Risky, Need Close Monitoring Due to Risk of Patient Decompensation, Need For Continuous Telemetry Monitoring, Need for Neurological Checks, Risk of Complication if Not Cared For in Hospital
--- NOTE | 2020-01-05 18:35 | ADVANCED CARE ---
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 The patient expressed her desire to be a full code. Time Spent: 16 minutes
[2020-01-05 19:06] LABS: HEMATOCRIT 40.2 % (36.0-47.0); HEMOGLOBIN 13.8 g/dL (12.0-15.5); MEAN CORPUSCULAR HEMOGLOBIN 31.7 pg (27.0-33.4); MEAN CORPUSCULAR HGB CONC 34.3 g/dL (32.0-36.0); MEAN CORPUSCULAR VOLUME 92 fl (80-97); PLATELET COUNT 183 10^3/uL (150-450); RED BLOOD COUNT 4.35 10^6/uL (3.72-5.28); RED CELL DISTRIBUTION WIDTH 12.1 % (11.5-14.0)
[2020-01-05] MEDS ORDERED: WARFARIN SODIUM 3 MG TABLET PO SCH (22:00)
[2020-01-05] MEDS ORDERED: WARFARIN SODIUM 5 MG TABLET PO SCH (22:00)
[2020-01-05] MEDS: DILTIAZEM HCL 120 MG CAP.SR.24H PO SCH (23:10)
[2020-01-05] MEDS: ENOXAPARIN SODIUM INJ 80 MG/0.8 ML DISP.SYRIN SUBCUT SCH (23:11)
--- NOTE | 2020-01-06 00:30 | EKG REPORT ---
SEVERITY:- ABNORMAL ECG - ATRIAL FIBRILLATION NONSPECIFIC REPOL ABNORMALITY, DIFFUSE LEADS : Confirmed by: Anay Villarreal 06-Jan-2020 00:29:30
[2020-01-06 06:15] LABS: INTERNATIONAL RATION (INR) 2.16; PROTHROMBIN TIME 24.1 SEC (11.4-15.4)
[2020-01-06 06:36] LABS: CHOLESTEROL 212.43 mg/dL (0-200); TRIGLYCERIDES 148 mg/dL (<150)
[2020-01-06 06:48] LABS: DIRECT LDL 136 mg/dL (<100)
[2020-01-06] MEDS: DILTIAZEM HCL 120 MG CAP.SR.24H PO SCH (10:34)
[2020-01-06] MEDS: ENOXAPARIN SODIUM INJ 80 MG/0.8 ML DISP.SYRIN SUBCUT SCH (10:34)
[2020-01-06 12:55] VITALS: BP 145/79
--- OUTSIDE RECORDS SUMMARY | 2020-01-06 15:01 | XMS REPORT ---
:1950 Author Organization [facility] Address [facility] [address] [place] [address] Care Team Providers Name Role Phone sherrie Chaudhry Primary Care Physician Unavailable Jose DURAN Attending Clinician Unavailable Allergies, Adverse Reactions, Alerts Allergy Allergy Status Severity Reaction(s) Onset Inactive Treating C omments Name Type Date Date Clinician Sulfa Sulfa Active Drugs Drugs Medications Ordered Filled Start Stop Current Ordering Indication Dosage Frequency Signature Comments Components Medication Medication Date Date Medication? Clinician (SIG) Name Name dilTIAZem Yes Timmy dilTIAZem HCl ER 7-24 Jose HCl ER Coated 00:00: Coated Beads 120 00 Beads 120 MG Oral MG Oral Capsule Capsule Extended Extended Release 24 Release 24 Hour Hour TAKE ONE CAPSULE EVERY DAY Quantity: 90 Refills: 3 Timmy Garcia MD Start : 5Active Warfarin Yes Timmy Warfarin Sodium 3 MG 7-24 Jose Sodium 3 Oral Tablet 00:00: MD MG Oral 00 Tablet TAKE 2 TABLETS BYMOUTH THURSDAY & THURSDAY Quantity: 180 Refills: 1 Timmy Garcia MD Start : 5Active Warfarin Yes Tarik Hooks Warfarin Sodium 4 MG 7-24 Richar DURAN Sodium 4 Oral Tablet 00:00: MG Oral 00 Tablet TAKE DIRECTED. Refills: 0 Tarik Mcqueen MD Start : 5Active Pravastatin Yes Tarik Hooks Pravastat i Sodium 10 7-24 Richar DURAN n Sodium MG Oral 00:00: 10 MG Oral Tablet 00 Tablet TAKE 1 TABLET AT BEDTIME. Refills: 0 Tarik Mcqueen MD Start : 5Active Warfarin Yes Timmy QD Warfarin Sodium 1 MG 2-09 Jose Sodium 1 Oral Tablet 00:00: MD MG Oral 00 Tablet TAKE 1 TABLET DAILY DIRECTED Quantity: 90 Refills: 3 Timmy Garcia MD Start : 03-Apr-2014 Active Problems Condition Condition Condition Status Onset Resolution Last Treatin g Comments Name Details Category Date Date Treatment Clinician Date Afib Afib Problem Active History of History of Problem Active TIA TIA (transient (transient ischemic ischemic attack) and attack) and stroke stroke HTN HTN Problem Active (hypertensi (hypertensi on) on) Hyperlipide Hyperlipide Problem Active randell randell Procedures Procedure Date / Time Performed Performing Clinician Tri salazar DP-2D Echo 2019-08-31 00:00:00 History of Cholecystectomy Laparoscopic History of Cataract Surgery History of Gallbladder surgery Results Test Description Test Time Test Comments Text Results Atomic Results Result Comments PT/INR-Flowsheet only 2019-12-09 14:52:00 Test Item Value Reference Range Comments Diagnosis (test code = Diagnosis) Atrial Fibrillation FSRange (test code = FSRange) 2.0-3.0 Dosage (test code = Dosage) 4mg x 5 days 6mg x 2 days INR (test code = INR) 3.6 Next INR (test code = Next INR) [id number] Any changes in medication? (test code = Any changes in No medication?) Are you taking Coumadin or Warafin? (test code = Are Warfarin you taking Coumadin or Warafin?) Any bruising? (test code = Any bruising?) No Any bloody nose, gums bleeding or blood in stool? (test No code = Any bloody nose, gums bleeding or blood in stool?) PT/INR-Flowsheet [id number] 13:41:00 Test Item Value Reference Range Comments Next INR (test code = Next INR) [id number] PT/INR-Flowsheet [id number] 13:38:00 Test Item Value Reference Range Comments Diagnosis (test code = Diagnosis) Atrial Fibrillation FSRange (test code = FSRange) 2.0-3.0 Dosage (test code = Dosage) 4 mg X 5 days 6mg X 2 days INR (test code = INR) 2.2 New Dosage (test code = New No change Dosage) Any missed doses (test code = Any Yes missed doses) Any changes in medication? (test No code = Any changes in medication?) Are you taking Coumadin or Warfarin Warafin? (test code = Are you taking Coumadin or Warafin?) Any bruising? (test code = Any No bruising?) Any bloody nose, gums bleeding or No blood in stool? (test code = Any bloody nose, gums bleeding or blood in stool?) Weight (test code = 3141-9) 156.8 {lb} Systolic (test code = 8480-6) 144 {mm Hg} Diastolic (test code = 8462-4) 76 {mm Hg} Heart Rate (test code = 8867-4) 96 {bpm} Staff (test code = Staff) Ana Maria Bobo Provider Following (test code = Timmy Garcia Provider Following) PT/INR-Flowsheet [id number] 14:33:00 Test Item Value Reference Range Comments INR (test code = INR) 3.1 PT/INR-Flowsheet [id number] 14:29:00 Test Item Value Reference Range Comments Diagnosis (test code = Diagnosis) Atrial Fibrillation FSRange (test code = FSRange) 2.0-3.0 Dosage (test code = Dosage) 4 mg X 5 days 6mg X 2 days Next INR (test code = Next INR) [id number] Any missed doses (test code = Any No missed doses) Any changes in medication? (test No code = Any changes in medication?) Are you taking Coumadin or Warfarin Warafin? (test code = Are you taking Coumadin or Warafin?) Any bruising? (test code = Any No bruising?) Any bloody nose, gums bleeding or Yes blood in stool? (test code = Any bloody nose, gums bleeding or blood in stool?) Weight (test code = 3141-9) 155.6 {lb} Systolic (test code = 8480-6) 162 {mm Hg} Diastolic (test code = 8462-4) 82 {mm Hg} Heart Rate (test code = 8867-4) 65 {bpm} Staff (test code = Staff) Ana Maria Bobo Provider Following (test code = Timmy Garcia Provider Following) PT/INR-Flowsheet [id number] 15:32:00 Test Item Value Reference Range Comments Diagnosis (test code = Diagnosis) Atrial Fibrillation FSRange (test code = FSRange) 2.0-3.0 Dosage (test code = Dosage) 4mg X 5 days 6 mg x 2 days INR (test code = INR) 2.7 New Dosage (test code = New No Change Dosage) Next INR (test code = Next INR) [id number] Any missed doses (test code = Any No missed doses) Any changes in medication? (test No code = Any changes in medication?) Are you taking Coumadin or Warfarin Warafin? (test code = Are you taking Coumadin or Warafin?) Any bruising? (test code = Any No bruising?) Any bloody nose, gums bleeding or No blood in stool? (test code = Any bloody nose, gums bleeding or blood in stool?) Weight (test code = 3141-9) 155.2 {lb} Systolic (test code = 8480-6) 152 {mm Hg} Diastolic (test code = 8462-4) 86 {mm Hg} Heart Rate (test code = 8867-4) 100 {bpm} Staff (test code = Staff) Ana Maria Bobo Provider Following (test code = Timmy Garcia Provider Following) PT/INR-Flowsheet [id number] 13:35:00 Test Item Value Reference Range Comments Diagnosis (test code = Atrial Fibrillation Diagnosis) FSRange (test code = FSRange) 2.0-3.0 Dosage (test code = Dosage) INR (test code = INR) 2.0 New Dosage (test code = New no change recheck in 1 month Dosage) Next INR (test code = Next INR) [id number] Any missed doses (test code = No Any missed doses) Any changes in medication? no (test code = Any changes in medication?) Are you taking Coumadin or Warfarin Warafin? (test code = Are you taking Coumadin or Warafin?) Any bruising? (test code = Any Yes bruising?) Any bloody nose, gums bleeding No or blood in stool? (test code = Any bloody nose, gums bleeding or blood in stool?) Weight (test code = 3141-9) 155.4 {lb} Systolic (test code = 8480-6) 122 {mm Hg} Diastolic (test code = 8462-4) 78 {mm Hg} Heart Rate (test code = 8867-4) 91 {bpm} Staff (test code = Staff) Ayah Condon Provider Following (test code = Timmy Garcia Provider Following) PT/INR-Flowsheet [id number] 14:22:00 Test Item Value Reference Range Comments Diagnosis (test code = Diagnosis) Atrial Fibrillation FSRange (test code = FSRange) 2.0-3.0 Dosage (test code = Dosage) 4mg X 5 days 6 mg X 2 days INR (test code = INR) 2.7 New Dosage (test code = New N/A Dosage) Next INR (test code = Next INR) [id number] Any missed doses (test code = Any No missed doses) Any changes in medication? (test No code = Any changes in medication?) Are you taking Coumadin or Warfarin Warafin? (test code = Are you taking Coumadin or Warafin?) Any bruising? (test code = Any No bruising?) Any bloody nose, gums bleeding or No blood in stool? (test code = Any bloody nose, gums bleeding or blood in stool?) Weight (test code = 3141-9) 156 {lb} Systolic (test code = 8480-6) 144 {mm Hg} Diastolic (test code = 8462-4) 82 {mm Hg} Heart Rate (test code = 8867-4) 98 {bpm} Staff (test code = Staff) Ana Maria Bobo Provider Following (test code = Timmy Garcia Provider Following) Assessments Condition Name Status Diagnosis Date Treating Clinici an Afib Active HTN (hypertension) Active Hyperlipidemia Active History of TIA (transient ischemic attack) Active and stroke Afib Active HTN (hypertension) Active Hyperlipidemia Active History of TIA (transient ischemic attack) Active and stroke Afib Active HTN (hypertension) Active Hyperlipidemia Active History of TIA (transient ischemic attack) Active and stroke Afib Active HTN (hypertension) Active Hyperlipidemia Active History of TIA (transient ischemic attack) Active and stroke Encounters Start End Encounter Admission Attending Care Care Encounter Date/Time Date/Time Type Type Clinicians Facility Department ID 2019-12-09 2019-12-09 Appointment [facility] [id number] 14:05:00 14:05:00 ; BEV salazar Lab WB 2019-11-14 2019-11-14 Appointment [facility] [id number] 13:15:00 13:15:00 ; BEV salazar Lab WB 2019-11-07 2019-11-07 [facility] [id number] 13:50:00 13:50:00 ; BEV salazar, Lab WB 2019-10-11 2019-10-11 Appointment [facility] [id number] 14:50:00 14:50:00 ; BEV salazar, Lab 2019-09-19 2019-09-19 Appointment [facility] [id number] 13:15:00 13:15:00 ; BEV Nicholasstephanie martin, Lab 2019-08-31 2019-08-31 [facility] [id number] 13:00:00 13:00:00 ; Timmy Cole MD 2019-08-24 2019-08-24 Appointment [facility] [id number] 14:15:00 14:15:00 ; BEV Loomisvikas martin, Lab 2019-08-18 2019-08-18 Appointment [facility] [id number] 15:10:00 15:10:00 ; BEV Loomisvikas martin, Lab 2019-07-27 2019-07-27 Appointment [facility] [id number] 13:30:00 13:30:00 ; BEV salazar, Lab 2019-07-19 2019-07-19 Appointment [facility] [id number] 14:55:00 14:55:00 ; BEV salazar, Lab 2019-06-22 2019-06-22 Appointment [facility] [id number] 16:05:00 16:05:00 ; BEV Loomisvikas martin, Lab 2019-05-26 2019-05-26 Appointment [facility] [id number] 15:35:00 15:35:00 ; BEV salazar, Lab 2019-05-03 2019-05-03 Appointment [facility] [id number] 10:45:00 10:45:00 ; BEV salazar, Lab 2019-04-19 2019-04-19 Appointment [facility] [id number] 13:15:00 13:15:00 ; BEV Loomisvikas martin, Lab 2019-04-07 2019-04-07 Appointment [facility] [id number] 14:10:00 14:10:00 ; BEV salazar, Lab 2019-03-24 2019-03-24 Appointment [facility] [id number] 14:05:00 14:05:00 ; BEV salazar, Lab 2019-03-17 2019-03-17 Appointment [facility] [id number] 14:45:00 14:45:00 ; BEV salazar, Lab 2019-02-21 2019-02-21 Appointment [facility] [id number] 14:55:00 14:55:00 ; BEV salazar, Lab 2019-01-26 2019-01-26 Appointment [facility] [id number] 13:50:00 13:50:00 ; BEV salazar, Lab 2019-01-04 2019-01-04 Appointment Jose [facility] [id number] 13:30:00 13:30:00 ; Timmy Cole MD 2018-12-27 2018-12-27 Appointment [facility] [id number] 14:15:00 14:15:00 ; BEV salazar Lab 2018-12-13 2018-12-13 Appointment [facility] [id number] 15:45:00 15:45:00 ; BEV salazar Lab 2018-11-15 2018-11-15 Appointment [facility] [id number] 14:55:00 14:55:00 ; BEV salazar Lab 2018-11-01 2018-11-01 Appointment [facility] [id number] 15:30:00 15:30:00 ; BEV salazar, Lab 2018-10-27 2018-10-27 Appointment [facility] [id number] 11:20:00 11:20:00 ; BEV salazar Lab 2018-10-21 2018-10-21 Appointment [facility] [id number] 14:40:00 14:40:00 ; BEV salazar, Lab 2018-07-01 2018-07-01 Appointment Jose [facility] [id number] 13:30:00 13:30:00 ; Timmy Cole MD 2017-12-31 2017-12-31 Appointment YFN Garcia [facility] [id number] 13:00:00 13:00:00 ; Timmy Cole MD Family History Family Member Diagnosis Comments Start Date Stop Date Father Family history of Brother Family history of lung cancer Plan of Treatment Planned Activity Planned Date Details Comments Future Scheduled Test [code = ] Social History Smoking Status Start Date Stop Date Never smoked tobacco (finding) Vital Signs Vital Name Observation Time Observation Value Comments Systolic blood pressure 2019-08-31 13:00:00 150 mm[Hg] Loca tion: LUE; Position: Sittin g Diastolic blood pressure 2019-08-31 13:00:00 80 mm[Hg] Loc ation: LUE; Position: Sittin g Body height 2019-08-31 13:00:00 61.5 [in_us] Weight 2019-08-31 13:00:00 156 [lb_av] Body mass index (BMI) 2019-08-31 13:00:00 29 kg/m2 [Ratio] Heart Rate 2019-08-31 13:00:00 84 /min Hospital Discharge Instructions NameDatesDetailsInstructions not documentedNameDatesDetailsInstructions not documented
--- NOTE | 2020-01-06 17:30 | PDOC DISCHARGE SUMMARY ---
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 The protocol at this facility because her pharmacy to dose the Coumadin. I will put her on therapeutic dose Lovenox until her INR is therapeutic. We will continue her diltiazem. We will have physical therapy see her in the morning. I was considering a YAYO but she may not need it because she is going to be anticoagulated anyway and she does not have any risk factors for severe bleeding. I will talk with the brand attendant about this in the morning. - Additional Information Resuscitation Status: Full Code Discharge Diet: Cardiac Discharge Activity: Activity As Tolerated Referrals: HANNA KING MD [Primary Care Provider] - (1 week-- spoke with the office and they couldnt give me an appoitment . They will call the patient on Thursday) Home Medications: Diltiazem HCl [Diltiazem 24Hr ER] 120 mg PO BID 10/27/13 Warfarin Sodium [Coumadin] 5 mg PO QPM 01/05/20 History of Present Illiness History of Present Illness: CORI ARECHIGA is a 69 year old female with a history of atrial fibrillation who is only 2 medications are diltiazem and Coumadin. She presented after having an episode this morning around 6:00. She said she was going to answer the door and she got very dizzy felt like she was not going to be able to make it to the door. She said she made it back to her couch and vomited. She called her friend and then she called EMS. She was still a little dizzy by the time I saw her. She did not have any strength deficits. She is not had any trouble chewing or swallowing and in fact says she is hungry and would like to have something to eat. She was not having any visual disturbances. No trouble using her hands. No trouble with her speech. She was taken off of her Coumadin for 2 days, Thursday and Thursday, and started back on Thursday. She was taking 6 mg twice a week and then 4 mg the rest of the week. Her INR was 3.7 and so her doctor had her hold her Coumadin for 2 days and then restart at 5 mg a day. She has been on that for 4 days now. Her INR after stopping Coumadin for 2 days and then being back on it at 5 mg for 4 days was 1.7. When EMS showed up her heart rate was in the 120s and 130s. Her heart rate is back in the normal range now and her other vital signs are stable. She was nauseated and threw up once in the ER. She had an MRI of the brain that showed a left cerebellar stroke. Apparently she had 1 in 2009 and that was how she found out she had atrial fibrillation. Hospital Course Hospital Course: She continues to display no deficits and was ambulating independently. She was put back on the 5 mg of Coumadin that she had been on for the past 4 days prior to admission and her INR this morning was in the therapeutic range. Since she has been on Coumadin for 5 days and she is now therapeutic, she does not need any further Lovenox at home. Her diltiazem controls her heart rate. I recommended a small dose of a statin to her, but she says that every time she is ever taken off statin it has given her muscle aches. She had been on 40 mg of pravastatin at home and it had been reduced to 10 but she has not started taking it. I recommend that she try it and see if that low dose of what may be the best tolerated of all the statins will be tolerable to her. We are getting her follow-up with her primary care provider in 7 to 10 days. I recommend that she not drive until she follow-up with her primary care provider. Her labs and examination were reassuring and she was discharged in stable condition. Physical Exam Vital Signs: Temp Pulse Resp BP Pulse Ox 98.3 F 105 H 19 145/79 H 98 01/06/20 12:37 01/06/20 12:37 01/06/20 12:37 01/06/20 12:37 01/06/20 12:37 Intake & Output 01/05/20 01/06/20 01/07/20 06:59 06:59 06:59 Intake Total 1480 360 Output Total 0 Balance 1480 360 Weight 70 kg General appearance: PRESENT: no acute distress, cooperative, disheveled Respiratory exam: PRESENT: clear to auscultation manuel, symmetrical, unlabored. ABSENT: accessory muscle use, chest wall tenderness, crackles, prolonged expiratory phas, rhonchi, tachypnea, wheezes Cardiovascular exam: PRESENT: irregular rhythm, +S1, +S2 Pulses: PRESENT: normal carotid pulses Vascular exam: PRESENT: normal capillary refill GI/Abdominal exam: PRESENT: normal bowel sounds, soft. ABSENT: distended, guarding, rebound, tenderness Extremities exam: ABSENT: clubbing, pedal edema Musculoskeletal exam: PRESENT: normal inspection. ABSENT: deformity Neurological exam: PRESENT: alert, awake, oriented to person, oriented to place, oriented to situation, CN II-XII grossly intact. ABSENT: motor sensory deficit Psychiatric exam: PRESENT: anxious Skin exam: PRESENT: dry, warm Results Laboratory Results: WBC 11.0 10^3/uL (4.0-10.5) H 01/05/20 18:50 RBC 4.35 10^6/uL (3.72-5.28) 01/05/20 18:50 Hgb 13.8 g/dL (12.0-15.5) 01/05/20 18:50 Hct 40.2 % (36.0-47.0) 01/05/20 18:50 MCV 92 fl (80-97) 01/05/20 18:50 MCH 31.7 pg (27.0-33.4) 01/05/20 18:50 MCHC 34.3 g/dL (32.0-36.0) 01/05/20 18:50 RDW 12.1 % (11.5-14.0) 01/05/20 18:50 Plt Count 183 10^3/uL (150-450) 01/05/20 18:50 Lymph % (Auto) 28.2 % (13-45) 01/05/20 07:40 [place] % (Auto) 7.4 % (3-13) 01/05/20 07:40 Eos % (Auto) 2.5 % (0-6) 01/05/20 07:40 Baso % (Auto) 1.2 % (0-2) 01/05/20 07:40 Absolute Neuts (auto) 4.5 10^3/uL (1.7-8.2) 01/05/20 07:40 Absolute Lymphs (auto) 2.1 10^3/uL (0.5-4.7) 01/05/20 07:40 Absolute Monos (auto) 0.5 10^3/uL (0.1-1.4) 01/05/20 07:40 Absolute Eos (auto) 0.2 10^3/uL (0.0-0.6) 01/05/20 07:40 Absolute Basos (auto) 0.1 10^3/uL (0.0-0.2) 01/05/20 07:40 Seg Neutrophils % 60.7 % (42-78) 01/05/20 07:40 PT 24.1 SEC (11.4-15.4) H 01/06/20 05:35 INR 2.16 01/06/20 05:35 Sodium 141.9 mmol/L (137-145) 01/05/20 07:40 Potassium 3.4 mmol/L (3.6-5.0) L 01/05/20 07:40 Chloride 104 mmol/L (98-107) 01/05/20 07:40 Carbon Dioxide 23 mmol/L (22-30) 01/05/20 07:40 Anion Gap 15 (5-19) 01/05/20 07:40 BUN 17 mg/dL (7-20) 01/05/20 07:40 Creatinine 0.72 mg/dL (0.52-1.25) 01/05/20 07:40 Est GFR ( Amer) > 60 (>60) 01/05/20 07:40 Est GFR (MDRD) Non-Af > 60 (>60) 01/05/20 07:40 Glucose 177 mg/dL (75-110) H 01/05/20 07:40 Hemoglobin A1c % 5.3 % (4.7-6.0) 01/06/20 05:35 Calcium 9.9 mg/dL (8.4-10.2) 01/05/20 07:40 Total Bilirubin 0.6 mg/dL (0.2-1.3) 01/05/20 07:40 Direct Bilirubin 0.1 mg/dL (0.0-0.4) 01/05/20 07:40 Neonat Total Bilirubin Not Reportable 01/05/20 07:40 Neonat Direct Bilirubin Not Reportable 01/05/20 07:40 Neonat Indirect Bili Not Reportable 01/05/20 07:40 AST 30 U/L (14-36) 01/05/20 07:40 ALT 17 U/L (<35) 01/05/20 07:40 Alkaline Phosphatase 68 U/L (38-126) 01/05/20 07:40 Creatine Kinase 43 U/L (30-135) 01/05/20 07:40 CK-MB (CK-2) 0.42 ng/mL (<4.55) 01/05/20 07:40 Troponin I < 0.012 ng/mL 01/05/20 07:40 Total Protein 8.2 g/dL (6.3-8.2) 01/05/20 07:40 Albumin 4.8 g/dL (3.5-5.0) 01/05/20 07:40 Triglycerides 148 mg/dL (<150) 01/06/20 05:35 Cholesterol 212.43 mg/dL (0-200) H 01/06/20 05:35 LDL Cholesterol Direct 136 mg/dL (<100) H 01/06/20 05:35 VLDL Cholesterol 30.0 mg/dL (10-31) 01/06/20 05:35 HDL Cholesterol 66 mg/dL (>40) 01/06/20 05:35 Urine Color YELLOW 01/05/20 13:16 Urine Appearance SLIGHTLY-CLOUDY 01/05/20 13:16 Urine pH 7.0 (5.0-9.0) 01/05/20 13:16 Ur Specific [place] 1.015 01/05/20 13:16 Urine Protein 30 mg/dL (NEGATIVE) H 01/05/20 13:16 Urine Glucose (UA) NEGATIVE mg/dL (NEGATIVE) 01/05/20 13:16 Urine Ketones TRACE mg/dL (NEGATIVE) H 01/05/20 13:16 Urine Blood SMALL (NEGATIVE) H 01/05/20 13:16 Urine Nitrite NEGATIVE (NEGATIVE) 01/05/20 13:16 Urine Bilirubin NEGATIVE (NEGATIVE) 01/05/20 13:16 Urine Urobilinogen NEGATIVE mg/dL (<2.0) 01/05/20 13:16 Ur Leukocyte Esterase SMALL (NEGATIVE) H 01/05/20 13:16 Urine WBC (Auto) 5 /HPF 01/05/20 13:16 Urine RBC (Auto) 3 /HPF 01/05/20 13:16 U Hyaline Cast (Auto) 1 /LPF 01/05/20 13:16 Squamous Epi Cells Auto 1 /HPF 01/05/20 13:16 Urine Mucus (Auto) RARE /LPF 01/05/20 13:16 Urine Ascorbic Acid NEGATIVE (NEGATIVE) 01/05/20 13:16 01/05/20 07:40 CK-MB (CK-2) 0.42 Troponin I < 0.012 Impressions: Head MRI 01/05/20 13:44 IMPRESSION: Acute, nonhemorrhagic infarct left cerebellum. EVIDENCE OF ACUTE STROKE: YES. LEFT VERTEBROBASILAR Plan Time Spent: Greater than 30 Minutes Stroke Is this a Stroke Patient?: Yes Reason(s) for not prescribing Anti-thrombolytic therapy:: Not indicated Stroke Pt being discharged on Anti-coagulation therapy?: Yes Stroke Pt being discharged on Statins?: Yes Acute Heart Failure Is this a Heart Failure Patient?: No
[2020-01-07] MEDS ORDERED: WARFARIN SODIUM 4 MG TABLET PO SCH (22:00)
== END 2020-01-06 13:32 | disposition home or self-care (01) | DRG 65 ==
LOC: ER 07:20 → EH 17:51 → 3W 22:49
PROVIDERS: ADMIT Family Medicine; ATTEND Family Medicine
DX: I63.342 Cerebral infarction due to thrombosis of left cerebellar artery (principal); I48.20 Chronic atrial fibrillation, unspecified; I10 Essential (primary) hypertension; E78.5 Hyperlipidemia, unspecified; I25.10 Atherosclerotic heart disease of native coronary artery without angina pectoris; Z79.01 Long term (current) use of anticoagulants; Z88.2 Allergy status to sulfonamides; Z91.040 Latex allergy status; Z88.1 Allergy status to other antibiotic agents; Z90.49 Acquired absence of other specified parts of digestive tract; Z79.899 Other long term (current) drug therapy
CPT/HCPCS: 36415; 70551; 80053; 80061; 81001; 82550; 82553; 83036; 84484; 85025; 85610; 93005; 93010; 96361; 96374; 96375; 99285; J1650; J2405; J2765; J7120

== ENCOUNTER → 2020-01-18 | Outpatient (CLI) | payer MEDICARE ==
[2020-01-18 15:30] LABS: INTERNATIONAL RATION (INR) 1.94; PROTHROMBIN TIME 22.2 SEC (11.4-15.4)
== END ==
LOC: OD 14:54
PROVIDERS: ATTEND Internal Medicine
DX: I48.20 Chronic atrial fibrillation, unspecified (principal); Z79.01 Long term (current) use of anticoagulants
CPT/HCPCS: 36415; 85610

== ENCOUNTER → 2020-02-01 | Outpatient (CLI) | payer MEDICARE ==
[2020-02-01 17:28] LABS: PARTIAL THROMBOPLASTIN TIME 40.6 SEC (23.5-35.8); PROTHROMBIN TIME 24.5 SEC (11.4-15.4)
== END ==
LOC: OD 15:23
PROVIDERS: ATTEND Physician Assistant
DX: Z51.81 Encounter for therapeutic drug level monitoring (principal); Z79.01 Long term (current) use of anticoagulants
CPT/HCPCS: 36415; 85610; 85730